=== PATIENT | female | born 1965 | race Caucasian/White ===

== ENCOUNTER 2020-05-27 07:12 | Outpatient (REF) | payer OTHER, SELFPAY ==
[2020-05-27 11:26] LABS: Hematocrit 37.9 % (37-47); Hemoglobin 11.8 g/dl (12.0-16.0); Mean Corpuscular HGB Conc 31.1 g/dl (31.0-35.0); Mean Corpuscular Hemoglobin 28.7 pg (27.0-33.0); Mean Corpuscular Volume 92.2 fL (80-98); Mean Platelet Volume 9.2 fL (9.4-12.3); Platelet Count 326 X10*3/uL (160-400); Red Blood Count 4.11 X10*6/uL (4.20-5.50); Red Cell Distribution Width 13.2 % (11.0-16.0); White Blood Count 4.6 X10*3/uL (4.8-10.8)
[2020-05-27 11:35] LABS: Glucose Urine UA NEG (NEG); Leukocyte Esterase Urine NEG (NEG); Nitrite Urine NEG (NEG); PH 5.5 (5.0-8.0); Urine Blood NEG (NEG); Urine Ketones NEG (NEG); Urine Protein NEG (NEG-TRACE)
[2020-05-27 11:46] LABS: Appearance Urine HAZY; Color Urine YELLOW
[2020-05-27 12:01] LABS: Alanine Aminotransferase 11 U/L (0-31); Albumin Level 4.3 g/dL (3.5-5.0); Alkaline Phosphatase 58 U/L (39-117); Anion Gap 12 (12-20); Aspartate Amino Transferase 14 U/L (5-31); Bilirubin Total 0.3 mg/dL (0.0-1.0); Blood Urea Nitrogen 15 mg/dL (9-16); Calcium 8.6 mg/dL (8.4-10.2); Carbon Dioxide 31 mmol/L (22-29); Chloride 102 mmol/L (96-108); Cholesterol 188 mg/dL; Estimated Glomerular Filt Rate > 60; Glucose Fasting 77 mg/dL (60-99); HDL Cholesterol 50 mg/dL; LDL Cholesterol Calculated 123 mg/dl; Potassium 4.4 mmol/L (3.3-5.1); Sodium 141 mmol/L (135-145); Total Protein 6.9 g/dL (6.5-8.0); Triglycerides 77 mg/dL
[2020-05-27 12:03] LABS: RBC Urine 0-2 /HPF (0); Squamous Epithelial Cell Urine 2+ /LPF; WBC Urine 0-2 /HPF (0-4)
[2020-05-27 12:04] LABS: Mucus Urine 1+ /LPF
[2020-05-27 12:09] LABS: TSH reflex Free T4 1.19 uIU/mL (0.32-4.0)
== END 2020-05-27 07:13 | disposition home or self-care (01) ==
LOC: HO.HMGCLDS 07:12
PROVIDERS: PCP Internal Medicine; Visit Provider Internal Medicine
DX: Z00.00 Encounter for general adult medical examination without abnormal findings (principal); G43.909 Migraine, unspecified, not intractable, without status migrainosus
CPT/HCPCS: 36415; 80053; 80061; 81001; 84443; 85027

== ENCOUNTER 2021-08-01 07:25 | Outpatient (REF) | payer OTHER, SELFPAY ==
[2021-08-01 08:01] LABS: Hematocrit 37.7 % (37.0-47.0); Mean Corpuscular HGB Conc 31.8 g/dl (31.0-35.0); Mean Corpuscular Hemoglobin 28.6 pg (27.0-33.0); Mean Platelet Volume 9.2 fL (9.4-12.3); Platelet Count 316 X10*3/uL (160-400); Red Blood Count 4.19 X10*6/uL (4.20-5.50); Red Cell Distribution Width 13.2 % (11.0-16.0); White Blood Count 5.6 X10*3/uL (4.8-10.8)
[2021-08-01 08:11] LABS: Estimated Average Glucose 108 mg/dL; Hemoglobin A1c % 5.4 %
[2021-08-01 08:16] LABS: Alanine Aminotransferase 9 U/L (0-31); Albumin Level 4.1 g/dL (3.5-5.0); Alkaline Phosphatase 67 U/L (39-117); Anion Gap 12 (12-20); Aspartate Amino Transferase 12 U/L (5-31); Bilirubin Total 0.4 mg/dL (0.0-1.0); Blood Urea Nitrogen 14 mg/dL (9-16); Calcium 9.3 mg/dL (8.4-10.2); Carbon Dioxide 28 mmol/L (22-29); Chloride 104 mmol/L (96-108); Cholesterol 199 mg/dL; Estimated Glomerular Filt Rate > 60; Glucose Fasting 91 mg/dL (60-99); HDL Cholesterol 47 mg/dL; LDL Cholesterol Calculated 135 mg/dl; Potassium 3.9 mmol/L (3.3-5.1); Sodium 140 mmol/L (135-145); Total Protein 6.7 g/dL (6.5-8.0); Triglycerides 89 mg/dL
[2021-08-01 08:43] LABS: TSH reflex Free T4 0.55 uIU/mL (0.32-4.0)
== END 2021-08-01 07:26 | disposition home or self-care (01) ==
LOC: HO.LAB 07:25
PROVIDERS: PCP Physician Assistant; Visit Provider Physician Assistant
DX: Z13.29 Encounter for screening for other suspected endocrine disorder (principal); Z13.220 Encounter for screening for lipoid disorders
CPT/HCPCS: 36415; 80053; 80061; 83036; 84443; 85027

== ENCOUNTER 2022-01-02 09:51 | Outpatient (REF) | payer OTHER, SELFPAY ==
--- NOTE | ~2022-01-02 | XR_ITS ---
EXAMINATION: XR CHEST CLINICAL INFORMATION: Cough COMPARISON: 01/08/2015 TECHNIQUE: 2 views of the chest were obtained. FINDINGS: No significant abnormality is noted involving the heart, lungs, mediastinum, bony thorax or soft tissues. XR/XR chest 2V IMPRESSION: No acute pulmonary disease. No significant change from prior study.
== END 2022-01-02 09:52 | disposition home or self-care (01) ==
LOC: HO.HMGCX 09:51
PROVIDERS: PCP Physician Assistant; Visit Provider Physician Assistant Medical
DX: R05.9 Cough, unspecified (principal)
CPT/HCPCS: 71046

== ENCOUNTER → 2022-01-06 11:23 | Outpatient (BNVA) | payer OTHER, SELFPAY | PROVIDERS: PCP Physician Assistant; Visit Provider Physician Assistant Medical | DX: S63.602A Unspecified sprain of left thumb, initial encounter (principal); S63.502A Unspecified sprain of left wrist, initial encounter; W18.30XA Fall on same level, unspecified, initial encounter | CPT/HCPCS: 73110; 73130; 99202 ==

== ENCOUNTER → 2022-01-11 07:54 | Outpatient (BNVA) | payer OTHER, SELFPAY | PROVIDERS: PCP Physician Assistant; Visit Provider Internal Medicine | DX: S60.222A Contusion of left hand, initial encounter (principal); W18.30XA Fall on same level, unspecified, initial encounter | CPT/HCPCS: 73200; 99214 ==

== ENCOUNTER → 2022-01-18 13:43 | Outpatient (BNVA) | payer OTHER, SELFPAY | PROVIDERS: PCP Physician Assistant; Visit Provider Internal Medicine | DX: S63.602D Unspecified sprain of left thumb, subsequent encounter (principal); S63.502D Unspecified sprain of left wrist, subsequent encounter; W18.30XD Fall on same level, unspecified, subsequent encounter | CPT/HCPCS: 99213 ==

== ENCOUNTER 2022-07-23 10:22 | Outpatient (REF) | payer OTHER, SELFPAY ==
--- NOTE | ~2022-07-23 | XR_ITS ---
EXAMINATION: XR CHEST CLINICAL INFORMATION: Bronchitis COMPARISON: Previous chest x-ray most recent December 2021 TECHNIQUE: 2 views of the chest were obtained. FINDINGS: No significant abnormality is noted involving the heart, lungs, mediastinum, bony thorax or soft tissues. XR/XR chest 2V IMPRESSION: Unremarkable examination.
== END 2022-07-23 10:23 | disposition home or self-care (01) ==
LOC: HO.HMGCX 10:22
PROVIDERS: PCP Physician Assistant; Visit Provider Physician Assistant
DX: J40 Bronchitis, not specified as acute or chronic (principal)
CPT/HCPCS: 71046

== ENCOUNTER 2023-02-02 08:31 | Outpatient (AMB) | payer OTHER, SELFPAY ==
[2023-02-02 08:52] VITALS: BP 110/72; PULSE 77; TEMP 36.6; O2SAT 98; BMI 27.4
--- NOTE | 2023-02-02 08:52 | MHC.OFFWIV ---
Intake Vital Signs 02/02/23 08:52 Height 5 ft 5 in Weight 164 lb 6 oz BMI 27.4 BP 110/72 Blood Pressure Location Lt brachial Position Sitting Pulse 77 Pulse Source Pulse Oximeter Temp 97.9 F Temp Source Temporal Artery Scan Pulse Oximetry (%) 98 Intake Visit Reasons: EP Cough, Lungs painful, ear pain (masked) Intake Note: pt is here for c/o cough and ear pain Patient Tobacco Use Status: Never used Tobacco Allergies egg Allergy (Unknown, Verified 02/02/23 08:52) gi upset Sulfa (Sulfonamide Antibiotics) [SULFA (SULFONAMIDE ANTIBIOTICS)] Allergy (Unknown, Verified 02/02/23 08:52) HIVES Do you need a note to return to daycare/school/sports/work: Yes HPI EP Cough, Lungs painful, ear pain (masked) HPI Details 57-year-old female patient presents today for a sick visit. Reports a 6 day history persistent postnasal, right ear pain, loss of voice. She denies fever or chills. 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 Home COVID tests been negative x3. She has been using herbal teas at home in addition to Robitussin without relief. REPLACED BY [facility] Medical History Normal Pap smear Annual physical exam Vitamin D deficiency, unspecified Leukocytopenia, unspecified Migraine headache Surgical History H/O colonoscopy No pertinent past surgical history Family History Father Lupus Mother No problems noted. Brother No problems noted. Brother No problems noted. Son Asthma Maternal Grandmother No problems noted. Maternal Grandfather No problems noted. Paternal Grandfather No problems noted. Paternal Grandmother No problems noted. Social History Housing: House Alcohol intake: current Alcohol intake frequency: holidays/special occasions only Patient Tobacco Use Status: Never used Tobacco e-Cigarette/Vaping Use: Never Used service: No Current occupational status: employed Current occupation: [employer] Cognitive needs: No Hearing needs: No Vision needs: No Review of Systems Const All systems reviewed & are unremarkable except as noted in HPI and below Physical Exam Vital Signs: Last Vital Signs Temp 97.9 F 02/02/23 08:52 Pulse 77 02/02/23 08:52 BP 110/72 02/02/23 08:52 Pulse Ox 98 02/02/23 08:52 BMI result Body Mass Index 27.4 Const General: cooperative and ill appearing acutely HEENT Head: Yes normal to inspection Ears: hearing grossly normal bilaterally, external ears normal and TM's normal bilaterally General nose exam: Normal external nose present Face and sinus: Yes sinus tenderness Mouth: Normal oral and palatal mucosa present Throat: Yes posterior oropharynx normal (Erythematous) Neck Neck: Yes no lymphadenopathy Resp Effort & Inspection: normal respiratory effort, able to speak in complete sentences and Actively coughing Quality: productive Auscultation: clear to auscultation bilaterally Cardio Jugular venous distension: no JVD Palpation: normal PMI Rate: regular rate Rhythm: regular rhythm Skin General skin exam: no rashes or lesions noted Extrem General: Yes capillary refill normal and Yes no clubbing, cyanosis or edema Psych Appearance: grossly normal Mental Status: mental status grossly normal Speech and movement: Normal speech and movement present Assessment & Plan Assessment & Plan (1) Upper respiratory tract infection: Code(s): J06.9 - Acute upper respiratory infection, unspecified Qualifiers: URI type: unspecified URI Qualified Code(s): J06.9 - Acute upper respiratory infection, unspecified Plan: Patient with symptoms x1 week. COVID has been negative, declines additional viral testing. Declines any prednisone as causes negative side effects in her. Will start her on azithromycin, benzonatate. We reviewed indications, use, possible side effects of medications. Advised rest, hydration, vitamin intake. If she does not improve with treatment, she should return to the clinic or PCP for further evaluation. She verbalizes understanding and agrees to plan. Work note provided. Medications: New azithromycin For 250 mg dose pack: take 500 mg today (day 1), then 250 mg for 4 days (days 2-5) PO 6 tabs 0RF J06.9 - Acute upper respiratory infection, unspecified benzonatate 100 mg PO BID PRN 14 caps 0RF cough 7 days R05.9 - Cough, unspecified Coding Level of Care Code Est Pt Level 3 (03945) Diagnoses Upper respiratory tract infection, unspecified type J06.9 URI type: unspecified URI
== END 2023-02-02 09:28 | disposition home or self-care (01) ==
PROVIDERS: PCP Physician Assistant; Visit Provider Nurse Practitioner Family
DX: J06.9 Acute upper respiratory infection, unspecified (principal)
CPT/HCPCS: 99213

== ENCOUNTER 2023-06-09 07:51 | Outpatient (REF) | payer OTHER, SELFPAY ==
[2023-06-09 08:06] LABS: Hemoglobin 12.9 g/dl (12.0-16.0); Mean Corpuscular HGB Conc 32.3 g/dl (31.0-35.0); Mean Corpuscular Hemoglobin 28.8 pg (27.0-33.0); Mean Corpuscular Volume 89.3 fL (80.0-98.0); Mean Platelet Volume 8.4 fL (9.4-12.3); Platelet Count 320 X10*3/uL (160-400); Red Blood Count 4.48 X10*6/uL (4.20-5.50); Red Cell Distribution Width 13.4 % (11.0-16.0); White Blood Count 5.8 X10*3/uL (4.8-10.8)
[2023-06-09 08:47] LABS: Alanine Aminotransferase 11 U/L (0-31); Albumin Level 4.4 g/dL (3.5-5.0); Alkaline Phosphatase 74 U/L (39-117); Anion Gap 13 (12-20); Aspartate Amino Transferase 14 U/L (5-31); Bilirubin Total 0.3 mg/dL (0.0-1.0); Blood Urea Nitrogen 17 mg/dL (9-16); Calcium 9.3 mg/dL (8.4-10.2); Carbon Dioxide 29 mmol/L (22-29); Chloride 104 mmol/L (96-108); Cholesterol 210 mg/dL (<200); Estimated Glomerular Filt Rate > 60; Glucose Fasting 94 mg/dL (60-99); HDL Cholesterol 48 mg/dL (>40); LDL Cholesterol Calculated 135 mg/dL (<100); Potassium 3.9 mmol/L (3.3-5.1); Sodium 142 mmol/L (135-145); Total Protein 7.5 g/dL (6.5-8.0); Triglycerides 135 mg/dL (<150)
[2023-06-09 09:02] LABS: TSH reflex Free T4 0.82 uIU/mL (0.32-4.0)
== END 2023-06-09 07:52 | disposition home or self-care (01) ==
LOC: HO.LAB 07:51
PROVIDERS: PCP Physician Assistant; Visit Provider Physician Assistant
DX: Z13.29 Encounter for screening for other suspected endocrine disorder (principal); Z13.1 Encounter for screening for diabetes mellitus; Z13.220 Encounter for screening for lipoid disorders; Z20.2 Contact with and (suspected) exposure to infections with a predominantly sexual mode of transmission
CPT/HCPCS: 36415; 80053; 80061; 84443; 85027

== ENCOUNTER 2023-06-29 15:45 | Outpatient (AMB) | payer OTHER, SELFPAY ==
[2023-06-29 16:15] VITALS: BP 100/70; PULSE 95; RESP 17; O2SAT 97; BMI 27.0
--- NOTE | 2023-06-29 16:15 | A.OFFPC_ITS ---
Vital Signs 06/29/23 16:15 Height 5 ft 5 in Weight 162 lb BMI 27.0 BP 100/70 Blood Pressure Location Lt brachial Respiration 17 Pulse 95 Pulse Source Pulse Oximeter Pulse Oximetry (%) 97 Oxygen Delivery Method Room Air Intake Visit Reasons: PE Intake Note: Patient is here today for a physical. 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 Accompanied by: Self / Same As Patient Allergies egg Allergy (Unknown, Verified 06/29/23 16:37) gi upset Sulfa (Sulfonamide Antibiotics) [SULFA (SULFONAMIDE ANTIBIOTICS)] Allergy (Unknown, Verified 06/29/23 16:37) HIVES Medication List - Last Reconciled 06/29/23 by Julius Hogan PA-C calcium carbonate-vitamin D3 600 mg-20 mcg (800 unit) 1 tab PO DAILY Tobacco use date assessed: 06/29/23 Dental Screening Dental Screen Date: 06/29/23 Did you have a dental visit in the last 12 months?: Yes Did you have a dental problem in the last 6 months where you did not have access to dental care?: No Was dental information given to patient?: Patient has dentist HPI PE HPI Details Patient is a 57 year female here today for routine annual physical establish care visit.? Concerns--> reports having lower back pain and right knee pain. Has use [id number] joint supplement that has not been helpful as of late. 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 Vaccines:? 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 [facility] Medical History Normal Pap smear Annual physical exam Vitamin D deficiency, unspecified Leukocytopenia, unspecified Migraine headache Surgical History H/O colonoscopy No pertinent past surgical history Family History Father Lupus Mother No problems noted. Brother No problems noted. Brother No problems noted. Son Asthma Maternal Grandmother No problems noted. Maternal Grandfather No problems noted. Paternal Grandfather No problems noted. Paternal Grandmother No problems noted. Social History Housing: House Alcohol intake: current Alcohol intake frequency: holidays/special occasions only Patient Tobacco Use Status: Never used Tobacco e-Cigarette/Vaping Use: Never Used service: No Current occupational status: employed Current occupation: [employer] Cognitive needs: No Hearing needs: No Vision needs: No Questionnaire PHQ-9 Over the last 2 weeks, how often have you been bothered by any of the following problems? 1. Little interest or pleasure in doing things: not at all 2. Feeling down, depressed, or hopeless: not at all 3. Trouble falling or staying asleep, or sleeping too much: not at all 4. Feeling tired or having little energy: not at all 5. Poor appetite or overeating: not at all 6. Feeling bad about yourself - or that you are a failure or have let yourself or your family down: not at all 7. Trouble concentrating on things, such as reading the newspaper or watching t elevision: not at all 8. Moving or speaking so slowly that other people could have noticed. Or the opposite - being so fidgety or restless that you have been moving around a lot more than usual: not at all 9. Thoughts that you would be better off or of hurting yourself in some way: not at all Total score: 0 Depression Screening Interpretation: Negative Depression Screening Done: Yes 14012 - PHQ-9 Billing: Yes Source: Developed by Drs. Kaz Roper, Brenda Giang, Bob Morales and colleagues, with an educational anastasiia from [employer] Thrive Questionnaire Date Thrive assessed: 06/29/23 I am a: Patient What is your living situation today?: I have a steady place to live Within the past 12 months, did the food you bought not last and you didn't have the money to get more?: Never true Within the past 12 months, did you worry whether your food would run out before you got money to buy more?: Never true Do you have trouble paying for medicines?: No Do you have trouble getting transportation to medical appointments?: No Do you have trouble paying your heating and electricity bill?: No Do you have trouble taking care of your child, family member or friend?: No Do you have trouble with day-to-day activities such as bathing, preparing meals, shopping, managing finances, etc.?: No Are you currently unemployed and looking for a job?: No Are you interested in more education?: No Please select the resources that you would like help with: None Currently or been in a relationship where the following occur: no concerns reported THRIVE Score: 0 AUDIT C Alcohol Use Questionnaire (AUDIT-C) 1. How often do you have a drink containing alcohol?: Monthly or less 2. How many drinks containing alcohol do you have on a typical day when you are drinking?: 1 or 2 3. How often do you have six or more drinks on one occasion?: Never Total Score: 1 KING-7 AMB Questionnaire KING-7 Date KING - 7 assessed: 06/29/23 Feeling nervous, anxious, or on edge: 0 = Not at all Not being able to stop or control worryin = Not at all Worrying too much about different things: 0 = Not at all Trouble relaxin = Not at all Being so restless that it is hard to sit still: 0 = Not at all Becoming easily annoyed or irritable: 0 = Not at all Feeling afraid as if something awful might happen: 0 = Not at all Total KING-7 score (0-4 normal; 5-9 mild; 10-14 moderate; 15-21 severe): 0 Source: Developed by Drs. Kaz Roper, Brenda Giang, Bob Morales and colleagues, with an educational anastasiia from [employer] KING-7 Assessment Billing KING-7 Assessment Tool: KING-7 Assessment 47297 Review of Systems Const Denies body aches, Denies chills, Denies excessive sweating, Denies fatigue, D enies fever(s) and Denies headache(s) Eyes Denies blurry vision ENT Denies dysphagia, Denies vertigo, Denies dizziness, Denies headache(s), Denies hearing loss and Denies tinnitus Card Denies chest pain, Denies chest pain with activity, Denies syncope, Denies irregular heart rhythm and Denies dyspnea Resp Denies chest congestion, Denies cough, Denies hemoptysis, Denies dyspnea and Denies wheezing GI Denies abdominal pain, Denies melena, Denies hematochezia, Denies coffee ground emesis, Denies dysphagia, Denies diarrhea, Denies nausea and Denies vomiting Denies urinary frequency, Denies dysuria, Denies urinary hesitancy and Denies urinary urgency Musc Denies arthralgias, Denies limited range of motion, Denies muscle cramps and Denies muscle weakness Skin/Breast Denies rash and Denies skin ulcer Neuro Denies Abnormal speech present, Denies confusion, Denies vertigo, Denies dizziness, Denies syncope, Denies headache(s), Denies memory loss and Denies seizure-like activity Psych Denies anxiety, Denies confusion, Denies depression, Denies memory loss, Denies panic attacks and Denies paranoia Endo Denies excessive sweating, Denies fatigue, Denies flushing, Denies polydipsia and Denies polyuria Aller/Immun Denies wheezing Physical exam (Primary Care) Vital Signs: Last Vital Signs Pulse 95 06/29/23 16:15 Resp 17 06/29/23 16:15 BP 100/70 06/29/23 16:15 Pulse Ox 97 06/29/23 16:15 Oxygen Delivery Method Room Air 06/29/23 16:15 BMI result Body Mass Index 27.0 Tobacco/Smoking Status: Tobacco use Status Tobacco use date assessed 06/29/23 06/29/23 16:23 Patient Tobacco Use Status Never used Tobacco 06/29/23 16:16 e-Cigarette/Vaping Use Never Used 06/29/23 16:16 PHQ-9: PHQ-9 Score PHQ-9: Total score 0 06/29/23 16:40 Depression Screening Interpretation: Negative Thrive Assessment: Date of Thrive Assessment Date Thrive assessed 06/29/23 06/29/23 16:23 Currently or been in a relationship where the following occur: no concerns reported Const General: cooperative, comfortable, no acute distress, alert and awake; No confusion Orientation/consciousness: oriented to person, oriented to place, patient oriented x3 and No confusion HENMT Head: Yes normocephalic Ears: external ears normal and TM's normal bilaterally Face and sinus: No sinus tenderness Mouth: Normal oral and palatal mucosa present and tongue normal Teeth and gingiva: dentition normal and gingiva normal Throat: Yes posterior oropharynx normal, Yes tonsils normal and Yes uvula midline Eyes Conjunctivae: conjunctivae normal Sclerae: sclerae normal Pupils: Equal, round and reactive pupils present EOM: EOMs intact bilaterally Direct Ophthalmoscopy: No no photophobia Neck Neck: Yes no lymphadenopathy, No tender and Yes no JVD Thyroid: Thyroid normal Carotids: no bruits Chest Chest palpation & inspection: no tenderness Resp Effort & Inspection: normal respiratory effort, no audible wheezes, not labored and no stridor Auscultation: no crackles, no rales, no rhonchi and no wheezes Cardio Jugular venous distension: no JVD Rate: regular rate, not bradycardic and not tachycardic Rhythm: regular rhythm Bruits: no carotid bruits Peripheral pulses: Peripheral pulses 2+ throughout GI Inspection: Yes normal to inspection, No abdominal wall ecchymosis and No visible herniation Palpation (GI): Soft to palpation, nontender, no guarding, not rigid and No hepatosplenomegaly present Auscultation: normoactive bowel sounds General: Yes no CVA tenderness Back/Spine/Pelvis Back: no CVA tenderness and No back tenderness Cervical Spine: cervical ROM normal Thoracic/Lumbar Spine: thoracic and lumbar spine normal to inspection, straight leg raise negative bilaterally, No thoraco-lumbar ROM limited and No lumbar spinal tenderness Skin Lesions: no lesions Rashes: no rashes Wounds: no wounds Neuro General: oriented to person, oriented to place, patient oriented x3, CN's II-XI intact bilaterally and No confusion Cranial nerves: Yes Equal, round and reactive pupils present and Yes Normal accommodation reflex present Cognition (Neuro): normal cognition Speech: No Abnormal speech present Gait exam (Neuro): Normal gait present Motor exam (neuro): 5/5 motor strength present throughout Extrem Right upper extremity: full ROM; no cyanosis Left upper extremity: full ROM; no cyanosis Right lower extremity: no edema Left lower extremity: no edema Psych Appearance: grossly normal Mental Status: mental status grossly normal Affect: normal affect Attitude: cooperative Thought process: Normal thought process present Assessment and Plan Assessment & Plan (1) Annual physical exam: Code(s): Z00.00 - Encounter for general adult medical examination without abnormal findings (2) Screening for diabetes mellitus (DM): Code(s): Z13.1 - Encounter for screening for diabetes mellitus (3) Right knee pain: Code(s): M25.561 - Pain in right knee Qualifiers: Chronicity: chronic Qualified Code(s): M25.561 - Pain in right knee; G89.29 - Other chronic pain Plan: Patient reports medial knee pain especially upon movement and standing. Appears to be an MCL strain. Advised on NSAID, stretching and cool compress. (4) Lumbar spine painful on movement: Code(s): M54.50 - Low back pain, unspecified Plan: Patient reports localized lower lumbar spine pain upon movement. She believes it is due to her positioning at work. Would likely benefit from physical therapy Orders: Orders XR knee RT 3V 06/29/23 M25.561 - Pain in right knee PT Evaluation and Treatment 06/29/23 M51.9 - Unspecified thoracic, thoracolumbar and lumbosacral intervertebral disc disorder, M54.50 - Low back pain, unspecified Comprehensive [place]. Panel Fast 06/29/23 Z13.1 - Encounter for screening for diabetes mellitus XR lumbar spine 2-3V 06/29/23 M54.50 - Low back pain, unspecified Coding Level of Care Code Est Pt Prev Care 40-64y(36408) Diagnoses Annual physical exam Z00.00 Screening for diabetes mellitus (DM) Z13.1 Chronic pain of right knee M25.561; G89.29 Chronicity: chronic Lumbar spine painful on movement M54.50 Additional Codes KING-7 Assessment Billing - KING-7 Assessment Tool: KING-7 Assessment 67291 ([id number])
== END 2023-06-29 16:51 | disposition home or self-care (01) ==
PROVIDERS: Visit Provider Physician Assistant
DX: Z00.00 Encounter for general adult medical examination without abnormal findings (principal); Z13.1 Encounter for screening for diabetes mellitus; M25.561 Pain in right knee; G89.29 Other chronic pain; M54.50 Low back pain, unspecified
CPT/HCPCS: 99396

== ENCOUNTER 2023-07-01 15:04 | Outpatient (REF) | payer OTHER, SELFPAY ==
--- NOTE | ~2023-07-01 | XR_ITS ---
EXAMINATION: 1. RADIOGRAPHS LUMBAR SPINE 2. RADIOGRAPHS RIGHT KNEE CLINICAL INFORMATION: Low back and right knee pain COMPARISON: None TECHNIQUE: 3 views of the lumbar spine and 2 views of the right knee were obtained. FINDINGS: Lumbar spine: 5 nonrib-bearing lumbar vertebral bodies are visualized. Alignment is within normal limits. Lumbar vertebral body heights are maintained. There is mild to moderate narrowing of the L5/S1 disc space height with mild narrowing of the L4/5 disc space height. Sacroiliac joints are symmetric. Small pelvic calcifications are likely vascular in nature. Right knee: No fracture or dislocation. No suprapatellar joint effusion. Small tricompartmental marginal osteophytes. Minimal narrowing of the medial joint space height. No localized soft tissue swelling the anterior knee. XR/XR knee RT 2V IMPRESSION: 1. Mild degenerative changes of the lower lumbar spine. 2. Mild degenerative changes of the right knee without fracture, dislocation or joint effusion.
--- NOTE | ~2023-07-01 | XR_ITS ---
EXAMINATION: 1. RADIOGRAPHS LUMBAR SPINE 2. RADIOGRAPHS RIGHT KNEE CLINICAL INFORMATION: Low back and right knee pain COMPARISON: None TECHNIQUE: 3 views of the lumbar spine and 2 views of the right knee were obtained. FINDINGS: Lumbar spine: 5 nonrib-bearing lumbar vertebral bodies are visualized. Alignment is within normal limits. Lumbar vertebral body heights are maintained. There is mild to moderate narrowing of the L5/S1 disc space height with mild narrowing of the L4/5 disc space height. Sacroiliac joints are symmetric. Small pelvic calcifications are likely vascular in nature. Right knee: No fracture or dislocation. No suprapatellar joint effusion. Small tricompartmental marginal osteophytes. Minimal narrowing of the medial joint space height. No localized soft tissue swelling the anterior knee. XR/XR lumbar spine 2-3V IMPRESSION: 1. Mild degenerative changes of the lower lumbar spine. 2. Mild degenerative changes of the right knee without fracture, dislocation or joint effusion.
== END 2023-07-01 15:05 | disposition home or self-care (01) ==
LOC: HO.HMGCX 15:04
PROVIDERS: PCP Physician Assistant; Visit Provider Physician Assistant
DX: M54.50 Low back pain, unspecified (principal); M25.561 Pain in right knee
CPT/HCPCS: 72100; 73560

== ENCOUNTER 2023-09-16 07:00 | Outpatient (RCR) | payer OTHER, SELFPAY ==
--- NOTE | 2023-08-04 08:40 | MHC.PT.EP ---
[facility] [place] Office [place] Office [place] Office [address] Judy Franklin [address] [phone] F: [phone] F: [phone] F: [phone] F: [phone] Physical Therapy Plan of Care Date of Evaluation: 08/04/23 Date of Surgery: n/a Diagnosis: unspecified thoracic, thoracolumbar and lumbosacral intervertebral disc disorder Assessment: Patient is a 57 year old female presenting to PT with complaints of pain in her low back. Pt reports onset of pain began about 1 year ago due to insidious onset. She presents today with impairments in ROM, core strength, pain, hip strength, muscle density/tenderness to palpation. 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 Clinical presentation today is most consistent with signs and sx associated with low back pain and pt will benefit from skilled PT 2 week x 4 weeks to address the following problems and impairments noted upon evaluation: ROM, core strength, pain, hip strength, muscle density/tenderness to palpation. These problems limit the patient with the following functional activities: work, ADLs, bending, squatting, lifting. The prescribed treatment plan of care is medically necessary. Co-morbidities of none were identified and taken into considerations of plan of care. Pt was educated on HEP, role of PT, prognosis, POC. Frequency and Duration: The patient will be seen 2 x week x 4 weeks Short Term Goals: Pt will demonstrate lumbar ROM in available range with no pain in 2 weeks. Pt will demonstrate improved hip MMT strength by 1/3 grade in 2 weeks for improved lumbopelvic stability. Pt will demonstrate ability to perform PPT with good core control in 2 weeks. Career Agent Goals: Pt will demonstrate improved Zachary score by 10% in 4 weeks for improved functional mobility. Pt will demonstrate ability to work with min to no pain in 4 weeks for return to PLOF. Pt will demonstrate ability to complete bending, lifting, and squatting with min to no pain in 4 weeks for improved tolerance to ADLs. Treatment Plan: Modalities to reduce pain, spasms and effusion. Manual therapy to restore motion and function. Therapeutic exercise to improve strength and flexibility. Neuromuscular re-education for posture and balance. Therapeutic activities to return to functional activities of daily living. Electronically signed by: India Watkins, PT, DPT, ATC Please sign and return to therapist. Thank you for your referral.
--- NOTE | 2023-09-16 07:48 | MHC.PT.DC ---
[facility] [place] Office [place] Office [place] Office [address] Judy Franklin [address] [facility] [phone] F: [phone] F: [phone] F: [phone] F: [phone] Physical Therapy Discharge Report Diagnosis: unspecified thoracic, thoracolumbar and lumbosacral intervertebral disc disorder Date of Surgery: n/a Date of Evaluation: 08/04/23 Date of Discharge: 09/16/23 Treatments to Date: 6 Cancellations to Date: 1 No Shows to Date: 0 Discharge Status: Achieved Goals Improved Function Independent with HEP Patient Elected to Stop Discharge Summary: 09/16/2023: Pt has made good progress since start of care for back pain. She is no longer having pain or limitations. She is independent and compliant with her HEP. At this time she also has an order for her knee and she would like to be d/c for the back to begin treatment for her knee. I feel this is reasonable and therefore will d/c her today. Electronically signed by: India Watkins, PT, DPT, ATC Please sign and return to therapist. Thank you for your referral.
== END 2023-09-16 07:48 | disposition home or self-care (01) ==
LOC: HO.PTCHIC 07:00
PROVIDERS: PCP Physician Assistant; Visit Provider Physician Assistant
DX: M51.9 Unspecified thoracic, thoracolumbar and lumbosacral intervertebral disc disorder (principal); M54.50 Low back pain, unspecified
CPT/HCPCS: 97110; 97112; 97161

== ENCOUNTER 2023-11-04 07:00 | Outpatient (RCR) | payer OTHER, SELFPAY ==
--- NOTE | 2023-09-26 07:50 | MHC.PT.EP ---
[facility] [place] [facility] [place] Office [place] Office [address] Judy Franklin [address] [phone] F: [phone] F: [phone] F: [phone] F: [phone] Physical Therapy Plan of Care Date of Evaluation: 09/26/23 Date of Surgery: n/a Diagnosis: R knee pain Assessment: Patient is a 58 year old female presenting to PT with complaints of pain in her R knee. Pt reports onset of pain began a couple years ago due to insidious onset. She presents today with impairments in pain, hip strength, quad strength without pain. 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 Pt expresses terminal manager goal of reducing pain, and is motivated to work towards this in PT. Clinical presentation today is most consistent with signs and sx associated with R knee pain and pt will benefit from skilled PT 2 week x 4 weeks to address the following problems and impairments noted upon evaluation: pain, hip strength, quad strength without pain. These problems limit the patient with the following functional activities: ambulating, stair negotiation, squatting. The prescribed treatment plan of care is medically necessary. Co-morbidities of none were identified and taken into considerations of plan of care. Pt was educated on HEP, role of PT, prognosis, POC. Frequency and Duration: The patient will be seen 2 x week x 4 weeks Short Term Goals: Pt will demonstrate 5/5 knee strength for flexion and ext without discomfort/pain in 2 weeks. Pt will demonstrate hip strength at lest 4+/5 for abd in 2 weeks for improved lumbopelvic stability. Senior Living Goals: Pt will demonstrate improved LEFI score by 9 points in 4 weeks for improved functional mobility. Pt will demonstrate ability to negotiate stairs with min to no pain in 4 weeks for return to PLOF. Pt will demonstrate ability to squat in 4 weeks with min to no pain for improved tolerance to work activities. Treatment Plan: Modalities to reduce pain, spasms and effusion. Manual therapy to restore motion and function. Therapeutic exercise to improve strength and flexibility. Neuromuscular re-education for posture and balance. Therapeutic activities to return to functional activities of daily living. Electronically signed by: India Watkins, PT, DPT, ATC Please sign and return to therapist. Thank you for your referral.
--- NOTE | 2023-11-04 08:54 | MHC.PT.DC ---
[facility] [place] [facility] [place] Office [place] Office [address] Judy Franklin [address] [phone] F: [phone] F: [phone] F: [phone] F: [phone] Physical Therapy Discharge Report Diagnosis: R knee pain Date of Surgery: n/a Date of Evaluation: 09/26/23 Date of Discharge: 11/04/23 Treatments to Date: 9 Cancellations to Date: 2 No Shows to Date: 0 Discharge Status: Improved Function Independent with HEP Discharge Summary: 11/04/2023: Today was pt's planned last day. She has felt improvements in her pain since start of care but does still feel it at times. Goals could not formerly be assessed as computer systems were down at time of appointment and therefore goals in digital chart were not accessible. Discussed if pain continues, recommend following up with her provider for further evaluation. She is in agreement with d/c and plan today and knows to continue with HEP at home as tolerated. Electronically signed by: India Watkins, PT, DPT, ATC Please sign and return to therapist. Thank you for your referral.
== END 2023-11-04 08:54 | disposition home or self-care (01) ==
LOC: HO.PTCHIC 07:00
PROVIDERS: PCP Physician Assistant; Visit Provider Physician Assistant
DX: M25.561 Pain in right knee (principal); G89.29 Other chronic pain
CPT/HCPCS: 97110; 97112; 97161

== ENCOUNTER 2024-06-05 07:34 | Outpatient (REF) | payer OTHER, SELFPAY ==
--- OUTSIDE RECORDS SUMMARY | 2024-06-05 07:37 | XMS_ITS | Data Portability ---
Author Organization [facility] [address] Address [address] [place] [address] Assessment No assessment recorded. Plan of Treatment Reminders Order Date Submit Date Provider Last Modified By Organization Details Last Modified Time Details Appointments None recorded. Lab None recorded. Referral None recorded. Procedures None recorded. Surgeries None recorded. Imaging None recorded. Medication Orders fluticasone propionate 50 mcg/actuati on nasal spray,suspe nsion 2022 023 [facility]armacy #[id number], [address] [place], [address], 3 09:06:47 prednisone 20 mg tablet 2022 023 [facility]arm[facility] #[id number], [address] [place], [address], 3 09:06:47 Patient TargetsNo targets recorded. Patient Instructions Encounter Date Encounter Id Patient Instructions Last Modified By Organization Details Last Modified Time 10/02/2022 [id number] cough: care instructions [email or web address] Not available 10/02/2022 09:06:45 Laryngitis is an inflammation of the voice box (larynx) that causes your voice to become raspy or hoarse. Most of the time, laryngitis comes on quickly and lasts as long as 2 weeks. It is caused by overuse, irritation, or infection of the vocal cords inside the larynx. ? Some of the most common causes are a cold, influenza (flu), or allergies. Loud talking, shouting, cheering, or singing also can cause laryngitis. Stomach acid that backs up into the throat also can make you lose your voice. ? Resting your voice and taking other steps at home can help you get your voice back. ? Rest your voice. You do not have to stop speaking, but use your voice as little as possible. Speak softly but do not whisper; whispering can bother your larynx more than speaking softly. Avoid talking on the telephone or trying to speak loudly. ? Drink plenty of water to keep your throat moist. ? Before you use cough and cold medicines, check the label. They may not be safe for young children or for people with certain health problems. ? Try to keep stomach acid from backing up into your throat. Do not eat just before bedtime. Reduce the amount of coffee and alcohol you drink, and eat healthy foods. Taking evwv-aow-fblkexi acid reducers can help when these steps are not enough. In some cases, you may need prescription medicine. ? Try not to clear your throat. This can cause more irritation of your larynx. Take an gdja-sxu-hrqzihm cough suppressant (if your doctor recommends it) if you have a dry cough that does not produce mucus. ? Use saline (saltwater) nasal washes to help keep your nasal passages open and wash out mucus and allergens. You can buy saline nose sprays at a grocery store or drugstore. Follow the instructions on the package. Or you can make your own at home. Add 1 teaspoon (5 mL) of non-iodized salt and 1 teaspoon (5 mL) of baking soda to 2 cups (500 mL) of distilled or boiled and cooled water. Fill a squeeze bottle or neti pot with the nasal wash. Then insert the tip into your nostril, and lean over the sink. With your mouth open, gently squirt the liquid. Repeat on the other side. [email or web address] Not available 10/02/2022 09:06:44 Reason for Referral None Reported. Problems No Known Problems Medical Equipment None Reported. Allergies Allergen ID Allergen Name Allergen Category Reaction Reaction Severity Criticality Documentation Date Start Date Code Code System Note Provider Name and Address Organization Details Recorded Time 145964 Substance with sulfonami de structure and antibacte rial mechanism of action (substanc e) medicatio n hives Not available Not available 10/02/2022 86093 8003 SNOMED [facility] 3 08:20:04 Medications Name Sig Start Date Stop Date Status Note LastModified by Organization Details LastModified Time prednisone 20 mg tablet Take 3 tablets every day by oral route in the morning for 5 days. 2022 active Not Available Not Available Not Avai lable fluticasone propionate 50 mcg/actuatio n nasal spray,suspen bria [place] 1 spray every day by intranasal route at bedtime for 7 days. 2022 active Not Available Not Available Not Avai lable Vitals Date Recorded Body height Body mass index (BMI) Body weight Pain severity - 0-10 verbal numeric rating [Score] - Reported Respiratory rate Oxygen saturation Oxygen saturation in Arterial blood by Pulse oximetry Heart rate Body temperature Systolic blood pressure Diastolic blood pressure Provider Name and Address Organization Details Last Updated DateTime 3 165.1 cm 26.3 kg/m2 34970.5 9 g 0 20 /min 99 % 99 % 89 /min 98 [degF] 103 mm[Hg] 72 mm[Hg] Clementina Mancini [facility] 08:21:59 Social History Question Answer Notes LastModified by Organizat ion Details LastModified Time Tobacco Smoking Status Never Smoker [facility] 10/02/2022 08:20:30 What Is Your Level Of Alcohol Consumption? None Information not available 10/02/2022 Have You Had Direct Contact, Or Contact During Intimacy, With Monkeypox Rash, Scabs, Or Body Fluids From A Person With Monkeypox? No Information not available 10/02/2022 Do You Use Any Illicit Or Recreational Drugs? No Information not available 10/02/2022 Have You Recently Traveled Abroad? No Information not available 10/02/2022 Do You Or Have You Ever Used Any Other Forms Of Tobacco Or Nicotine? No Information not available 10/02/2022 Sex: Unknown Functional Status None recorded. Mental Status None recorded. Family History Relationship Description Onset Age of this Age Resolved Age Notes LastModified by Organization Details LastModified Time Father No current problems or disability Not available 10/02 08:20:23 Mother No current problems or disability Not available 10/02 08:20:23 Medical History No medical history recorded. Gynecological History Statement/Question Response Is there any chance of ? No LMP N/A Obstetrics History GPAL:G 0 P 0 0 0 0 Immunizations Vaccine Type Date Status Note Provider Nam e and Address Organization Details Recorded Time Influenza, split virus, quadrivalent, preservative 0 completed Clementina [place] null, [place] - [facility] 10/02/2022 08:20:13 zoster recombinant 2 completed Clementina [place] null, [place] - [facility] 10/02/2022 08:20:13 zoster recombinant 2 completed Clementina Aquilino null, [place] - [facility] 10/02/2022 08:20:13 COVID-19, mRNA, LNP-S, PF, 30 mcg/0.3 mL dose 1 completed Clementina [place] null, [place] - [facility] 10/02/2022 08:20:13 COVID-19, mRNA, LNP-S, PF, 30 mcg/0.3 mL dose 1 completed Clementina Aquilino null, PA - [facility] 10/02/2022 08:20:13 COVID-19, mRNA, LNP-S, PF, 30 mcg/0.3 mL dose 1 completed Clementina Aquilino null, [place] - [facility] 10/02/2022 08:20:13 COVID-19, mRNA, LNP-S, PF, 30 mcg/0.3 mL dose 1 completed Clementina Aquilino null, [place] - [facility] 10/02/2022 08:20:13 COVID-19, mRNA, LNP-S, PF, 30 mcg/0.3 mL dose 1 completed Clementina [place] null, [place] - [facility] 10/02/2022 08:20:13 COVID-19, mRNA, LNP-S, PF, 30 mcg/0.3 mL dose, grazyna-sucrose 2 completed Clementina Aquilino null, PA - [facility] 10/02/2022 08:20:13 Tdap 4 completed Clementina Aquilino null, [place] - [facility] 10/02/2022 08:20:13 Influenza, split virus, quadrivalent, PF 1 completed Clementina Aquilino null, [place] - [facility] 10/02/2022 08:20:13 Influenza, split virus, quadrivalent, PF 2 completed Clementina [place] null, [place] - [facility] 10/02/2022 08:20:13 Past Encounters Encounter ID Performer Location Encounter Start Date Encounter Closed Date Diagnosis/Indication Diagnosis SNOMED-CT Code Diagnosis ICD10 Code Diagnosis Note [id number] [address] [address] 02/12/2022 17:33:48 02/12/2022 20:12:37 [id number] YAIMA ABRAMS MD [address] [facility] [address] [place] [address] 10/02/2022 08:07:03 10/02/2022 09:11:14 Nasal congestion 78129929 R09.81 Acute laryngitis 7300248 J04.0 Clear liquids for comfortFre sh Mary Jo Root Tea-Cut up fresh mary jo root and boil it till fragrant. drink the liquid as a tea. Can add Honey to taste. Also For Sore Throat:Thr oat Comfort Tea (by [employer])Thro at Coat Tea ( by [employer] ) Clear broth soup: Vegetable, Chicken or Beef as tolerated. Salt Water GarglesMix 1 teaspoonfu l of salt in a glass of warm water. Gargle and spit out the salt water mixture one mouthful at a time until the glass is empty. Repeat 4 times daily. Persistent cough 8125707 02 R05.3 CoughBlack Elderberry Syrup:1-2 tsp 2-3 times a day for 5 days as needed for coughing.S ambucol Black Elderberry Original Syrup (available at [employer] )Michelle Herbs Black Elderberry Syrup, 5.4-Ounce Bottle (available at [employer] or [employer]) Use a cool mist humidifier in the room that you sleep to add moisture to the air, which should soothe the airways and help loosen any mucus that may be present. You can also use the benzonatat e pills you already have as directed by the prescriber . Health Concerns Section Related Observation LastModified by Organization Detai ls LastModified Time None Recorded Concern Status LastModified by Organization Details LastModified Time None Recorded Advance Directives Directive None Recorded Payers Encounter Date Sequence Insurance Name Policy Number Policy Christine Covered Member ID Christine Member ID Guarantor Name 02/12/2022 1 [employer] [id number] 1 Lennox Stinson [id number] Lennox Stinson 10/02/2022 1 [employer] [id number] 1 Lennox Stinson [id number] Lennox Stinson Notes Date Note Type Note Provider Name and Address Organization Details Recorded Time 10/02/2022 text/html CoughReported bypatient.Quality:h vannessa;dry; symptoms worse with lying down Severity:moderate Duration:14 days Timing:sudden Context:co-workers ill with similar symptoms Associated Symptoms:no fever; no chest pain; no nausea; no vomiting; no wheezing;post nasal drip 57 yo female presenting with a 2 week hx of sore throat (resolved) loss of voice, nasal congestion, and persistent cough. Afebrile. No SOB, No rashes. YAIMA ABRAMS MD [facility] [place], [address], [place] - [facility] 10/02/2022 09:07:57 OBGyn Episode No OBEpisode recorded.
--- OUTSIDE RECORDS SUMMARY | 2024-06-05 07:37 | XMS_ITS | Encounter Summary ---
Author Organization [employer] Address [address] [place] [address] [address] [place] [address] Care Team Providers Care Knitting Demonstrator Name Role Phone Unavailable Primary Care Provider Unavailabl e Encounter Details Date Type Department Care Team (Latest Contact Info) Description 01/16/2019 Abstract [facility] Dental, Provider, DDS Social History Tobacco Use Types Packs/Day Years Used Date Smoking Tobacco: Never Assessed Comments Unknown Sex and Gender Information Value Date Recorded Sex Assigned at Female 02/15/2022 10:23 AM EDT Legal Sex Female 10:23 AM EDT Gender Identity Female 02/15/2022 10:23 AM EDT Sexual Orientation Straight 02/15/2022 10 :23 AM EDT documented as of this encounter Plan of Treatment Not on file documented as of this encounter Visit Diagnoses Not on filedocumented in this encounter
--- OUTSIDE RECORDS SUMMARY | 2024-06-05 07:37 | XMS_ITS | Clinical Summary ---
Author Organization [employer] Address [address] [place] [address] [address] [place] [address] Care Team Providers Care Literacy Consultant Name Role Phone Unavailable Primary Care Provider Unavailabl e Social History Tobacco Use Types Packs/Day Years Used Date Smoking Tobacco: Never Assessed Comments Unknown Sex and Gender Information Value Date Recorded Sex Assigned at Female 02/15/2022 10:23 AM EDT Legal Sex Female 10:23 AM EDT Gender Identity Female 02/15/2022 10:23 AM EDT Sexual Orientation Straight 02/15/2022 10 :23 AM EDT Plan of Treatment Health Maintenance Due Date Last Done Comments CT Colonography 1967 Colonoscopy 1967 Colorectal Cancer Screening 1967 Depression Screening 1967 FIT DNA/Cologuard 1967 FIT 1967 FOBT 1967 Sigmoidoscopy 1967 Alcohol/Substance Use Screening 1979 Tobacco Screening 1979 DTaP/Tdap/Td Vaccines (1 - Tdap) 08/20/1986 Hepatitis B Vaccines (1 of 3 - 19+ 3-dose series) 08/20/1986 Pap Smear 08/20/1988 Cervical Cancer Screening 08/20/1997 HPV/Cotest 08/20/1997 Mammogram 2007 Pneumococcal Vaccine: 50+ Ye ars (1 of 1 - PCV) 08/20/2017 Zoster Vaccines (1 of 2) 08/20/2017 COVID-19 Vaccine ( - 2023-2 5 season) 2023 Influenza Vaccine (#1) 2023 RSV Patients and Pa tients Aged 60 years or older (1 - 1-dose 75+ series) 08/20/2042 HIB Vaccines Aged Out No longer eligi ble based on patient's age to complete this topic HPV Vaccines Aged Out No longer eligi ble based on patient's age to complete this topic Hepatitis A Vaccines Aged Out No long er eligible based on patient's age to complete this topic IPV Vaccines Aged Out No longer eligi ble based on patient's age to complete this topic Meningococcal Vaccine Aged Out No taina david eligible based on patient's age to complete this topic Pneumococcal Vaccine: Pediat rics (0 to 5 Years) and At-Risk Patients (6 to 49) Years) Aged Out No longer eligible b ased on patient's age to complete this topic RSV under 20 months Aged Out No longe r eligible based on patient's age to complete this topic Rotavirus Vaccines Aged Out No longer eligible based on patient's age to complete this topic
[2024-06-05 10:25] LABS: Alanine Aminotransferase 14 U/L (0-31); Albumin Level 4.3 g/dL (3.5-5.0); Alkaline Phosphatase 75 U/L (39-117); Anion Gap 12 (12-20); Aspartate Amino Transferase 22 U/L (5-31); Bilirubin Total 0.3 mg/dL (0.0-1.0); Blood Urea Nitrogen 14 mg/dL (9-16); Calcium 9.3 mg/dL (8.4-10.2); Carbon Dioxide 30 mmol/L (22-29); Chloride 105 mmol/L (96-108); Estimated Glomerular Filt Rate > 60; Glucose Fasting 84 mg/dL (60-99); Sodium 143 mmol/L (135-145); Total Protein 7.5 g/dL (6.5-8.0)
== END 2024-06-05 07:35 | disposition home or self-care (01) ==
LOC: HO.HMGCLDS 07:34
PROVIDERS: PCP Physician Assistant; Visit Provider Physician Assistant
DX: Z13.1 Encounter for screening for diabetes mellitus (principal)
CPT/HCPCS: 36415; 80053

== ENCOUNTER 2024-07-03 13:20 | Outpatient (AMB) | payer OTHER, SELFPAY ==
[2024-07-03 13:32] VITALS: BP 122/70; PULSE 102; TEMP 36.2; O2SAT 98; BMI 27.8
--- NOTE | 2024-07-03 13:32 | A.OFFPC_ITS ---
Vital Signs 07/03/24 13:32 Height 5 ft 5 in Weight 167 lb 6 oz BMI 27.8 BP 122/70 Blood Pressure Location Lt brachial Position Sitting Pulse 102 H Pulse Source Pulse Oximeter Temp 97.1 F Temp Source Temporal Artery Scan Pulse Oximetry (%) 98 Oxygen Delivery Method Room Air Intake Visit Reasons: Annual Exam Intake Note: Patient is here today for a physical. Independent Living Specialist Required: No Accompanied by: Self / Same As Patient Allergies egg Allergy (Unknown, Verified 07/03/24 13:46) gi upset Sulfa (Sulfonamide Antibiotics) [SULFA (SULFONAMIDE ANTIBIOTICS)] Allergy (Unknown, Verified 07/03/24 13:46) HIVES Medication List - Last Reconciled 07/03/24 by Julius Hogan PA-C calcium carbonate-vitamin D3 600 mg-20 mcg (800 unit) 1 tab PO DAILY cetirizine (Allergy Relief (cetirizine)) 10 mg PO DAILY PRN 30 days Tobacco use date assessed: 07/03/24 Dental Screening Dental Screen Date: 07/03/24 Did you have a dental visit in the last 12 months?: Yes Did you have a dental problem in the last 6 months where you did not have access to dental care?: No Was dental information given to patient?: Patient has dentist HPI Annual Exam HPI Details Patient is a 58 year female here today for routine annual physical. Patient has a past medical history significant for environmental allergies and history of borderline high cholesterol Concerns--> no concerns today Vaccines:? 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 Laboratory Tests 06/09/23 08:00 RBC 4.48 Hgb 12.9 Creatinine 0.75 Cholesterol 210 H LDL Cholesterol, C alc 135 H TSH 0.82 PFSH Medical History Normal Pap smear Annual physical exam Vitamin D deficiency, unspecified Leukocytopenia, unspecified Migraine headache Surgical History H/O colonoscopy No pertinent past surgical history Family History Father Lupus Mother No problems noted. Brother No problems noted. Brother No problems noted. Son Asthma Maternal Grandmother No problems noted. Maternal Grandfather No problems noted. Paternal Grandfather No problems noted. Paternal Grandmother No problems noted. Social History (Updated 07/03/24 @ 13:49 by Julius Hogan PA-C) Housing: House Alcohol intake: current Alcohol intake frequency: holidays/special occasions only Patient Tobacco Use Status: Never used Tobacco e-Cigarette/Vaping Use: Never Used service: No Current occupational status: employed Current occupation: [employer] Cognitive needs: No Hearing needs: No Vision needs: No Questionnaire PHQ-9 Over the last 2 weeks, how often have you been bothered by any of the following problems? 1. Little interest or pleasure in doing things: not at all 2. Feeling down, depressed, or hopeless: not at all 3. Trouble falling or staying asleep, or sleeping too much: not at all 4. Feeling tired or having little energy: not at all 5. Poor appetite or overeating: not at all 6. Feeling bad about yourself - or that you are a failure or have let yourself or your family down: not at all 7. Trouble concentrating on things, such as reading the newspaper or watching television: not at all 8. Moving or speaking so slowly that other people could have noticed. Or the opposite - being so fidgety or restless that you have been moving around a lot more than usual: not at all 9. Thoughts that you would be better off or of hurting yourself in some way: not at all Total score: 0 Depression Screening Interpretation: Negative Depression Screening Done: Yes 69159 - PHQ-9 Billing: Yes Source: Developed by Drs. Kaz Roper, Brenda Giang, Bob Morales and colleagues, with an educational anastasiia from [employer]. Thrive Questionnaire Date Thrive assessed: 07/03/24 I am a: Patient What is your living situation today?: I have a steady place to live Within the past 12 months, did the food you bought not last and you didn't have the money to get more?: Never true Within the past 12 months, did you worry whether your food would run out before you got money to buy more?: Never true Do you have trouble paying for medicines?: No Do you have trouble getting transportation to medical appointments?: No Do you have trouble paying your heating and electricity bill?: No Do you have trouble taking care of your child, family member or friend?: No Do you have trouble with day-to-day activities such as bathing, preparing meals, shopping, managing finances, etc.?: No Are you currently unemployed and looking for a job?: No Are you interested in more education?: No Please select the resources that you would like help with: None Currently or been in a relationship where the following occur: No concerns reported THRIVE Score: 0 AUDIT C Alcohol Use Questionnaire (AUDIT-C) 1. How often do you have a drink containing alcohol?: Monthly or less 2. How many drinks containing alcohol do you have on a typical day when you are drinking?: 1 or 2 3. How often do you have six or more drinks on one occasion?: Never Total Score: 1 KING-7 AMB Questionnaire KING-7 Date KING - 7 assessed: 07/03/24 Feeling nervous, anxious, or on edge: 0 = Not at all Not being able to stop or control worryin = Not at all Worrying too much about different things: 0 = Not at all Trouble relaxin = Not at all Being so restless that it is hard to sit still: 0 = Not at all Becoming easily annoyed or irritable: 0 = Not at all Feeling afraid as if something awful might happen: 0 = Not at all Total KING-7 score (0-4 normal; 5-9 mild; 10-14 moderate; 15-21 severe): 0 Source: Developed by Drs. Kaz Roper, Brenda Giang, Bob Morales and colleagues, with an educational anastasiia from [employer]. KING-7 Assessment Billing KING-7 Assessment Tool: KING-7 Assessment 09481 Review of Systems Const Denies body aches, Denies chills, Denies excessive sweating, Denies fatigue, Denies fever(s) and Denies headache(s) Eyes Denies blurry vision ENT Denies dysphagia, Denies vertigo, Denies dizziness, Denies headache(s), Denies hearing loss and Denies tinnitus Card Denies chest pain, Denies chest pain with activity, Denies syncope, Denies irregular heart rhythm and Denies dyspnea Resp Denies chest congestion, Denies cough, Denies hemoptysis, Denies dyspnea and Denies wheezing GI Denies abdominal pain, Denies melena, Denies hematochezia, Denies coffee ground emesis, Denies dysphagia, Denies diarrhea, Denies nausea and Denies vomiting Denies urinary frequency, Denies dysuria, Denies urinary hesitancy and Denies urinary urgency Musc Denies arthralgias, Denies limited range of motion, Denies muscle cramps and Denies muscle weakness Skin/Breast Denies rash and Denies skin ulcer Neuro Denies Abnormal speech present, Denies confusion, Denies vertigo, Denies dizziness, Denies syncope, Denies headache(s), Denies memory loss and Denies seizure-like activity Psych Denies anxiety, Denies confusion, Denies depression, Denies memory loss, Denies panic attacks and Denies paranoia Endo Denies excessive sweating, Denies fatigue, Denies flushing, Denies polydipsia and Denies polyuria Aller/Immun Denies wheezing Physical exam (Primary Care) Vital Signs: Last Vital Signs Temp 97.1 F 07/03/24 13:32 Pulse 102 H 07/03/24 13:32 BP 122/70 07/03/24 13:32 Pulse Ox 98 07/03/24 13:32 Oxygen Delivery Method Room Air 07/03/24 13:32 BMI result Body Mass Index 27.8 Tobacco/Smoking Status: Tobacco use Status Tobacco use date assessed 07/03/24 07/03/24 13:35 Patient Tobacco Use Status Never used Tobacco 07/03/24 13:35 e-Cigarette/Vaping Use Never Used 07/03/24 13:35 PHQ-9: PHQ-9 Score PHQ-9: Total score 0 07/03/24 13:35 Depression Screening Interpretation: Negative Thrive Assessment: Date of Thrive Assessment Date Thrive assessed 07/03/24 07/03/24 13:35 Currently or been in a relationship where the following occur: No concerns reported Const General: cooperative, comfortable, no acute distress, alert and awake; No confusion Orientation/consciousness: oriented to person, oriented to place, patient oriented x3 and No confusion HENMT Head: Yes normocephalic Ears: external ears normal and TM's normal bilaterally Face and sinus: No sinus tenderness Mouth: Normal oral and palatal mucosa present and tongue normal Teeth and gingiva: dentition normal and gingiva normal Throat: Yes posterior oropharynx normal, Yes tonsils normal and Yes uvula midline Eyes Conjunctivae: conjunctivae normal Sclerae: sclerae normal Pupils: Equal, round and reactive pupils present EOM: EOMs intact bilaterally Direct Ophthalmoscopy: No no photophobia Neck Neck: Yes no lymphadenopathy, No tender and Yes no JVD Thyroid: Thyroid normal Carotids: no bruits Chest Chest palpation & inspection: no tenderness Resp Effort & Inspection: normal respiratory effort, no audible wheezes, not labored and no stridor Auscultation: no crackles, no rales, no rhonchi and no wheezes Cardio Jugular venous distension: no JVD Rate: regular rate, not bradycardic and not tachycardic Rhythm: regular rhythm Bruits: no carotid bruits Peripheral pulses: Peripheral pulses 2+ throughout GI Inspection: Yes normal to inspection, No abdominal wall ecchymosis and No v isible herniation Palpation (GI): Soft to palpation, nontender, no guarding, not rigid and No hepatosplenomegaly present Auscultation: normoactive bowel sounds General: Yes no CVA tenderness Back/Spine/Pelvis Back: no CVA tenderness and No back tenderness Cervical Spine: cervical ROM normal Thoracic/Lumbar Spine: thoracic and lumbar spine normal to inspection, straight leg raise negative bilaterally, No thoraco-lumbar ROM limited and No lumbar spinal tenderness Skin Lesions: no lesions Rashes: no rashes Wounds: no wounds Neuro General: oriented to person, oriented to place, patient oriented x3, CN's II-XI intact bilaterally and No confusion Cranial nerves: Yes Equal, round and reactive pupils present and Yes Normal accommodation reflex present Cognition (Neuro): normal cognition Speech: No Abnormal speech present Gait exam (Neuro): Normal gait present Motor exam (neuro): 5/5 motor strength present throughout Extrem Right upper extremity: full ROM; no cyanosis Left upper extremity: full ROM; no cyanosis Right lower extremity: no edema Left lower extremity: no edema Psych Appearance: grossly normal Mental Status: mental status grossly normal Affect: normal affect Attitude: cooperative Thought process: Normal thought process present Coding Level of Care Code Est Pt Prev Care 40-64y(22768) Diagnoses Annual physical exam Z00.00 Screening for diabetes mellitus (DM) Z13.1 Non-seasonal allergic rhinitis due to other allergic trigger J30.89 Allergic rhinitis trigger: other Allergic rhinitis seasonality: non-seasonal Borderline high cholesterol E78.9 Additional Codes KING-7 Assessment Billing - KING-7 Assessment Tool: KING-7 Assessment 61153 ([id number]) PHQ-9 - 93861 - PHQ-9 Billing: Yes ([id number]) Assessment & Plan Assessment & Plan (1) Annual physical exam: Code(s): Z00.00 - Encounter for general adult medical examination without abnormal findings Category: Medical Plan: As per HPI (2) Screening for diabetes mellitus (DM): Code(s): Z13.1 - Encounter for screening for diabetes mellitus Category: Medical Plan: As per HPI (3) Allergic rhinitis: Code(s): J30.9 - Allergic rhinitis, unspecified Category: Medical Qualifiers: Allergic rhinitis trigger: other Allergic rhinitis seasonality: non- seasonal Qualified Code(s): J30.89 - Other allergic rhinitis Plan: Patient has a 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 Has been started on cetirizine which has reduced her recurrence of sinus infections. (4) Borderline high cholesterol: Code(s): E78.9 - Disorder of lipoprotein metabolism, unspecified Category: Medical Plan: Patient has a history of borderline high cholesterol, will continue to follow lipid panel to ensure normal. She will continue with lifestyle and dietary modifications. Orders: Orders Comprehensive [place]. Panel Fast Today Z13.1 - Encounter for screening for diabetes mellitus Lipid Panel Today E78.9 - Disorder of lipoprotein metabolism, unspecified Complete Blood Count no Diff Today Z13.1 - Encounter for screening for diabetes mellitus
--- OUTSIDE RECORDS SUMMARY | 2024-07-03 15:39 | XMS_ITS | Data Portability ---
Author Organization [facility] [address] Address [address] [place] [address] Assessment No assessment recorded. Plan of Treatment Reminders Order Date Submit Date Provider Last Modified By Organization Details Last Modified Time Details Appointments None recorded. Lab None recorded. Referral None recorded. Procedures None recorded. Surgeries None recorded. Imaging None recorded. Medication Orders fluticasone propionate 50 mcg/actuati on nasal spray,suspe nsion 2022 023 [facility] #[id number], [address] [place], [address], 3 09:06:47 prednisone 20 mg tablet 2022 023 [facility] #[id number], [address] [place], [address], 3 09:06:47 Patient TargetsNo targets recorded. Patient Instructions Encounter Date Encounter Id Patient Instructions Last Modified By Organization Details Last Modified Time 10/02/2022 [id number] cough: care instructions [id number] Not available 10/02/2022 09:06:45 Laryngitis is an [...] you drink, and eat healthy foods. Taking rjac-dol-kvamvru acid reducers can help when these steps are not enough. In some cases, you may need prescription medicine. ? Try not to clear your throat. This can cause more irritation of your larynx. Take an eaty-ewq-krholvu cough suppressant (if your doctor recommends it) [...] the liquid. Repeat on the other side. [id number] Not available 10/02/2022 09:06:44 Reason for Referral None Reported. Problems No Known Problems Medical Equipment None Reported. Allergies Allergen ID Allergen Name Allergen Category Reaction Reaction Severity Criticality Documentation Date Start Date Code Code System Note Provider Name and Address Organization Details Recorded Time 184625 Substance with sulfonami de structure and antibacte rial mechanism of action (substanc e) medicatio n hives Not available Not available 10/02/2022 [id number] SNOMED [facility] 3 08:20:04 Medications Name Sig Start Date Stop Date Status Note LastModified by Organization Details LastModified Time prednisone 20 mg tablet Take 3 tablets every day by oral route in the morning for 5 days. 2022 active Not Available Not Available Not Avai lable fluticasone propionate 50 mcg/actuatio n nasal spray,suspen bria [place] 1 spray every day by intranasal route [...] Updated DateTime 3 165.1 cm 26.3 kg/m2 83016.5 9 g 0 20 /min 99 % [...] split virus, quadrivalent, preservative 0 completed Clementina [place] null, [place] - [facility] 10/02/2022 08:20:13 zoster recombinant 2 completed Clementina [place] null, [place] - [facility] 10/02/2022 08:20:13 zoster recombinant 2 completed Clementina [place] null, [place] - [facility] 10/02/2022 08:20:13 COVID-19, mRNA, LNP-S, PF, 30 mcg/0.3 mL dose 1 completed Clementina [place] null, [place] - [facility] 10/02/2022 08:20:13 COVID-19, mRNA, LNP-S, PF, 30 mcg/0.3 mL dose 1 completed Clementina [place] null, [place] - [facility] 10/02/2022 08:20:13 COVID-19, mRNA, LNP-S, PF, 30 mcg/0.3 mL dose 1 completed Clementina Aqu[place] null, [place] - [facility] 10/02/2022 08:20:13 COVID-19, mRNA, LNP-S, PF, 30 mcg/0.3 mL dose 1 completed Clementina [place] null, [place] - [facility] 10/02/2022 08:20:13 COVID-19, mRNA, LNP-S, PF, 30 mcg/0.3 mL dose 1 completed Clementina Aqu[place] null, [place] - [facility] 10/02/2022 08:20:13 COVID-19, mRNA, LNP-S, PF, 30 mcg/0.3 mL dose, grazyna-sucrose 2 completed Clementina [place] null, [place] - [facility] 10/02/2022 08:20:13 Tdap 4 completed Clementina [place] null, [place] - [facility] 10/02/2022 08:20:13 Influenza, split virus, quadrivalent, PF 1 completed Clementina [place] null, [place] - [facility] 10/02/2022 08:20:13 Influenza, split virus, quadrivalent, PF 2 completed Clementina Aqu[place] null, [place] - [facility] 10/02/2022 08:20:13 Past Encounters Encounter ID Performer Location Encounter Start Date Encounter Closed Date Diagnosis/Indication Diagnosis SNOMED-CT Code Diagnosis ICD10 Code Diagnosis Note [id number] [address] [address] [address] 02/12/2022 17:33:48 02/12/2022 20:12:37 [id number] YAIMA ABRAMS MD [facility] [address] [place] [address] 10/02/2022 08:07:03 10/02/2022 09:11:14 Nasal congestion 01639120 R09.81 Acute laryngitis 9627141 J04.0 Clear liquids for comfortFre sh Mary [...] empty. Repeat 4 times daily. Persistent cough 2585196 02 R05.3 CoughBlack Elderberry Syrup:1-2 tsp 2-3 times a day for 5 days as needed for coughing.S ambucol Black Elderberry Original Syrup (available at [employer] )Michelle Her[employer] Black Elderberry Syrup, 5.4-Ounce Bottle (available at [employer] or [employer]) Use a cool mist humidifier in the [...] Member ID Guarantor Name 02/12/2022 1 [facility] [id number] Lennox Stinson [id number] Lennox Stinson 10/02/2022 1 [facility] [id number] Lennox Stinson [id number] Lennox Stinson Notes Date Note Type Note [...] No SOB, No rashes. YAIMA ABRAMS MD [address] [facility] [place], [address], [place] - [facility] 10/02/2022 09:07:57 OBGyn Episode No OBEpisode recorded.
--- OUTSIDE RECORDS SUMMARY | 2024-07-03 15:39 | XMS_ITS | Encounter Summary ---
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
--- OUTSIDE RECORDS SUMMARY | 2024-07-03 15:39 | XMS_ITS | Clinical Summary ---
Author Organization [employer] Address [address] [place] [address] [address] [place] [address] Care Team Providers Care Client Resolution Specialist Name Role Phone Unavailable Primary Care Provider [...]
== END 2024-07-03 13:59 | disposition home or self-care (01) ==
LOC: HO.HMCH 13:21
PROVIDERS: PCP Physician Assistant; Visit Provider Physician Assistant
DX: Z00.00 Encounter for general adult medical examination without abnormal findings (principal); Z13.1 Encounter for screening for diabetes mellitus; J30.89 Other allergic rhinitis; E78.9 Disorder of lipoprotein metabolism, unspecified

== ENCOUNTER → 2024-07-03 13:20 | Outpatient (BNVA) | payer OTHER, SELFPAY | PROVIDERS: PCP Physician Assistant; Visit Provider Physician Assistant | DX: Z00.00 Encounter for general adult medical examination without abnormal findings (principal); J30.89 Other allergic rhinitis; E78.9 Disorder of lipoprotein metabolism, unspecified | CPT/HCPCS: 96127 ==